=== PATIENT | female | born 1975 | race Caucasian/White ===

== ENCOUNTER 2016-10-25 14:24 | Emergency (ER) | payer OTHER ==
[~2016-10-25] VITALS: Ht 170.2 cm; Wt 108.9 kg
--- NOTE | ~2016-10-25 | US98 ---
[facility] A Service of [facility] [place] & [facility] RADIOLOGY TEXT RESULTS PATIENT: TAWNY PATEL LOCATION: [place] : [birth year] UNIT #: [id number] AGE: [address]: Ivonne Vasquez MD SEX: F ORDER DR: [id number] [facility] [address]. [place], [place] [address] [id number] MR#: [id number] Acc #: [id number] NAME: TAWYN PATEL : 1975 SEX: F STUDY DATE/TIME: 10/25/2016 18:30 UNIT: [facility] ROOM: STUDY DESCRIPTION: US Pelvic Non-OB Complete Attending Physician: Ivonne Vasquez M.D. Ordering Physician: Ed Doctor [id number] [facility] Primary Care Physician: Navdeep Ibarra M.D. MEDICAL IMAGING REPORT This report is preliminary unless electronic signature is present EXAM Pelvic ultrasound 10/25/2016 INDICATIONS Pelvic pain for 3 days in a 41-year-old female TECHNIQUE Sonographic imaging of the pelvis was performed bilaterally. No relevant comparisons. Imaging was performed transabdominally and transvaginally for better evaluation of the adnexa and ovarian structures. FINDINGS Transabdominal: Uterus and ovaries were not visualized. There was an inadequate sonographic window for transabdominal imaging. Transvaginal: Uterus measures 7.5 x 4.4 x 5.2 cm. Incidental nabothian cyst in the cervix. Endometrial stripe measures approximately 4 mm. Uterus otherwise unremarkable. Small amount of free fluid in the pelvis within the physiologic range. The left ovary measures up to 3.5 cm and demonstrates good flow. There are multiple follicles in the left ovary. Probable resolving proteinaceous cyst or hemorrhagic cyst in the left ovary measures 2.2 cm. The right ovary measures up to 2.6 x 3 cm and also demonstrates good flow at the time of the study with small follicles. Intimately associated with the right ovary and extending towards the midline, there is a tubular fluid-filled structure. Imaging features are nonspecific but suggestive of a right-sided hydrosalpinx. This could alternatively represent fluid-filled bowel loops. No drainable fluid collection or distinct adnexal mass. [facility] A Service of [facility] [place] & [facility] RADIOLOGY TEXT RESULTS PATIENT: TAWNY PATEL LOCATION: [facility] : [birth year] UNIT #: [id number] AGE: [address]: Ivonne Vasquez MD SEX: F ORDER DR: IMPRESSION: 1. The uterus and ovaries appear within normal limits. Probable proteinaceous or hemorrhagic cyst in the left ovary measures up to 2.2 cm. Suggest interval followup ultrasound in 6-8 weeks after subsequent menstrual cycles to ensure decrease in size over time. 2. No endometrial thickening. 3. Nonspecific tubular fluid-filled structure in the right adnexa suspicious for a right-sided hydrosalpinx. This could alternatively represent fluid-filled bowel in the right adnexa. Dictated by... Sebastian Gauthier M.D. THIS IS AN ELECTRONICALLY VERIFIED REPORT Sebastian Gauthier M.D. at 10/26/2016 11:27 AM Juwan TD: 10/26/2016 01:12 JOB #: [id number] MEDICAL IMAGING REPORT Page 1 of 1 COPY
[~2016-10-25 14:24] MED LIST: AMOXICILLIN500 M1 PO; AMOXICILLIN875 MG PO; AUGMENTIN875 M1 PO; NORCO1 TAB 10/3 PO; PRENATAL1 TA1 PO; SYNTHROID PO; TIROSINT125 MCG PO
[2016-10-25 15:54] LABS: URINE SOURCE CLEAN CATCH
[2016-10-25 16:04] LABS: URINE APPEARANCE CLEAR; URINE BILIRUBIN NEG (NEG); URINE BLOOD 3+ (NEG); URINE COLOR YELLOW; URINE GLUCOSE NEG (NEG); URINE KETONE NEG (NEG); URINE LEUKOCYTE ESTERASE NEG (NEG); URINE NITRATE NEG (NEG); URINE PH 6.5 (5-8); URINE PROTEIN NEG (NEG); URINE SPECIFIC GRAVITY 1.015 (1.003-1.035)
[2016-10-25 16:07] LABS: URINE BACTERIA AUWI NEG (NEGATIVE); URINE SQUAMOUS EPITHELIAL CELL OCC /[HPF]
[2016-10-25 16:08] LABS: CULTURE INDICATED? NO
[2016-10-25 16:51] LABS: URINE SOURCE CATH
[2016-10-25 17:00] LABS: URINE APPEARANCE CLEAR; URINE BILIRUBIN NEG (NEG); URINE BLOOD NEG (NEG); URINE COLOR YELLOW; URINE GLUCOSE NEG (NEG); URINE KETONE NEG (NEG); URINE LEUKOCYTE ESTERASE NEG (NEG); URINE NITRATE NEG (NEG); URINE PROTEIN NEG (NEG); URINE SPECIFIC GRAVITY 1.015 (1.003-1.035); URINE UROBILINOGEN 0.2 MG/DL (NEG)
[2016-10-25 17:09] LABS: BASOPHIL# 0.1 X10e3 (0-0.3); BASOPHIL% 0.6 % (0-2.5); EOSINOPHIL# 0.3 X10e3 (0-0.7); EOSINOPHIL% 3.5 % (0.0-7.0); HEMOGLOBIN 15.1 gm/dL (12.0-16.0); LYMPHOCYTE# 2.2 X10e3 (1.0-3.5); MEAN CELL VOLUME 90.5 FL (83-96); MEAN CORPUSCULAR HEMOGLOBIN 30.5 PG (28-34); MEAN CORPUSCULAR HGB CONC 33.6 g/dL (30-36); MEAN PLATELET VOLUME 10.7 FL (6.5-11.5); MONOCYTE# 0.5 X10e3 (0-1.0); MONOCYTE% 6.1 % (3.0-12.0); NEUTROPHIL# 5.9 X10e3 (1.5-7.1); NEUTROPHIL% 65.8 % (40-75); PLATELET COUNT 246 X10e3 (140-420); RED BLOOD COUNT 4.97 X10e (3.90-5.30); RED CELL DISTRIBUTION WIDTH 13.2 % (11.0-15.5)
[2016-10-25 17:13] LABS: CULTURE INDICATED? NO
[2016-10-25 17:18] LABS: ALBUMIN SERUM 3.9 g/dL (3.5-5.0); BILIRUBIN,TOTAL 0.6 mg/dL (0.2-2.0); BUN/CREATININE RATIO 7.5; CALCIUM SERUM 8.4 mg/dL (8.4-10.2); CREATININE SERUM 0.8 mg/dL (0.6-1.4); GLOM FILT RATE Estimated 92.3 mL/min (>60); POTASSIUM 3.7 mmol/L (3.5-5.1); PROTEIN TOTAL SERUM 7.1 g/dL (6.0-8.3)
[2016-10-25 17:22] LABS: DIFF IND NO
== END 2016-10-25 20:10 | disposition home or self-care (01) ==
LOC: CED 14:24
PROVIDERS: Emergency Medicine
DX: N70.11 Chronic salpingitis (principal); E03.9 Hypothyroidism, unspecified; F17.200 Nicotine dependence, unspecified, uncomplicated; Z90.49 Acquired absence of other specified parts of digestive tract; Z79.899 Other long term (current) drug therapy
CPT/HCPCS: 76856; 80053; 81003; 84703; 85025; 96361; 96374; 96375; 96376; 99284; J2270; J2405